=== PATIENT | male | born 1960 | race Caucasian/White ===

== ENCOUNTER 2021-06-26 10:32 | Day surgery (SDC) | payer MEDICARE, OTHER ==
[~2021-06-26] VITALS: Ht 175.3 cm; Wt 125.0 kg
[2021-06-26] MEDS ORDERED: fentaNYL/PF 50MCG/1 ML 2ML syringe ONE (10:41)
[2021-06-26] MEDS ORDERED: LIDOcaine Viscous 15ml cup ONE (10:41)
[2021-06-26] MEDS ORDERED: MIDAZolam 1 MG/ML 5ML VIAL ONE (10:41)
[2021-06-26 10:55] VITALS: BP 121/36
[2021-06-26] MEDS ORDERED: PANT-47 PO (11:06)
[2021-06-26] MEDS ORDERED: LOP25T PO (11:07)
[2021-06-26 11:52] VITALS: BP 125/90
[2021-06-26 11:58] VITALS: BP 128/58
[2021-06-26 12:06] VITALS: BP 122/75
[2021-06-26 12:16] VITALS: BP 130/69
== END 2021-06-26 12:23 | disposition home or self-care (01) ==
LOC: GI LAB 10:32
PROVIDERS: ATTEND Internal Medicine Gastroenterology
DX: R10.13 Epigastric pain (principal); K22.8 Other specified diseases of esophagus; K31.7 Polyp of stomach and duodenum; G47.30 Sleep apnea, unspecified; Z91.013 Allergy to seafood; Z79.899 Other long term (current) drug therapy; Z96.653 Presence of artificial knee joint, bilateral
CPT/HCPCS: 43239; 43251; C1773; G0500; J2250; J3010; J7040; Z7512; 88305; 88342; 99152; A4620